=== PATIENT | female | born 1995 | race Caucasian/White ===

== ENCOUNTER 2020-12-15 05:48 | Inpatient (IN) ==
[2020-12-15] MEDS ORDERED: *HR* Nalbuphine 10 MG/ML AMPUL IV PRN (05:52)
[2020-12-15] MEDS ORDERED: Lidocaine 1% 20 ML MDV INFILT PRN (05:52)
[2020-12-15] MEDS ORDERED: Metoclopramide 10 MG/2 ML VIAL IVP PRN (05:52)
[2020-12-15] MEDS ORDERED: Famotidine 20 MG/2 ML VIAL IVP PRN (05:52)
[2020-12-15] MEDS ORDERED: Naloxone 0.4 MG/ML INJ IVP PRN (05:52)
[2020-12-15] MEDS ORDERED: miSOPROStoL 25 MCG TABLET PO PRN (05:54)
[2020-12-15] MEDS ORDERED: Ondansetron 4 MG/2 ML VIAL IVP PRN (06:00)
[2020-12-15] MEDS ORDERED: Ringers Solution, Lactated 1,000 ML IVC SCH (06:00)
[2020-12-15] MEDS ORDERED: EPHEDrine 50 MG/ML VIAL IVP PRN (06:09)
[2020-12-15] MEDS ORDERED: Epidural Premix (fent/bupiv) 110 ML EP SCH (06:15)
[2020-12-15 06:34] LABS: Basophils % 0.2 %; Eosinophils # 0.1 K/mcL (0.0-0.6); Hemoglobin 10.5 g/dL (11.5-15.4); Immature Granulocytes % 0.5 % (0-4); Lymphocytes # 1.7 K/mcL (0.6-4.6); Lymphocytes % 18.5 %; Mean Corpuscular HGB Conc 31.8 g/dL (31.6-35.5); Mean Corpuscular Hemoglobin 25.6 pg (28.0-33.3); Mean Corpuscular Volume 80.5 fL (83.0-100.0); Mean Platelet Volume 11.4 fL (9.4-12.4); Monocytes # 0.8 K/mcL (0.0-1.3); Monocytes % 8.4 %; Neutrophils # 6.6 K/mcL (1.6-8.9); Platelet Count 298 K/mcL (140-400); Red Cell Distribution Width 14.2 % (11.5-14.5); Segmented Neutrophils % 71.4 %; White Blood Count 9.3 K/mcL (4.3-11.1)
[2020-12-15 07:08] LABS: Influenza A PCR Negative (Negative); Influenza B PCR Negative (Negative); Resp. Syncytial Virus PCR Negative (Negative); SARS-CoV-2 by PCR (In House) Negative (Negative)
[2020-12-15 08:35] LABS: Amphetamine Screen,Urine Negative ng/mL (Cutoff=1000); Barbiturate Screen,Urine Negative ng/mL (Cutoff=200); Benzodiazepines Screen,Urine Negative ng/mL (Cutoff=300)
[2020-12-15 08:36] LABS: Cannabinoid Screen,Urine Negative ng/mL (Cutoff = 50); Cocaine Screen,Urine Negative ng/mL (Cutoff= 300); Opiate Screen,Urine Negative ng/mL (Cutoff=300); Phencyclidine Screen,Urine Negative ng/mL (Cutoff=25)
[2020-12-15] MEDS ORDERED: Oxytocin 20 units/ LR 1000 mL 20 UNIT/1,000 ML BAG IVC SCH (09:15)
[2020-12-15] MEDS ORDERED: Lidocaine/EPI 1:200k 2% PF 20 ML VIAL ONE (20:53)
[2020-12-15] MEDS ORDERED: Ondansetron 4 MG/2 ML VIAL ONE (21:11)
[2020-12-15] MEDS ORDERED: Ketorolac 30 MG/ML VIAL ONE (21:18)
[2020-12-15] MEDS ORDERED: *HR* FentaNYL (PF) 100 MCG/2 ML VIAL ONE (21:27)
[2020-12-15] MEDS ORDERED: *HR* Morphine Sulfate/PF 10 MG/10 ML AMPUL ONE (21:27)
[2020-12-16] MEDS ORDERED: Metoclopramide 10 MG/2 ML VIAL IVP PRN (00:01)
[2020-12-16] MEDS ORDERED: Ondansetron 4 MG/2 ML VIAL IVP PRN (00:01)
[2020-12-16] MEDS ORDERED: *HR* OxyCODONE Immed Rel 5 MG TABLET PO PRN (00:01)
[2020-12-16] MEDS ORDERED: Oxytocin 20 units/ LR 1000 mL 20 UNIT/1,000 ML BAG IVC SCH (00:01)
[2020-12-16] MEDS: Acetaminophen 325 MG TABLET PO SCH ×2 (01:45→12:24)
[2020-12-16] MEDS: Ibuprofen 600 MG TABLET PO SCH ×3 (01:45→15:47)
[2020-12-16] MEDS: Prenatal Vit/FA 1 EACH TABLET PO SCH (08:42)
[2020-12-16] MEDS: Simethicone 80 MG TAB.CHEW PO PRN ×2 (08:43→19:45)
[2020-12-16 14:44] LABS: Basophils % 0.2 %; Eosinophils % 0.2 %; Hematocrit 25.7 % (35.3-44.9); Immature Granulocytes % 0.5 % (0-4); Lymphocytes # 1.6 K/mcL (0.6-4.6); Mean Corpuscular HGB Conc 31.5 g/dL (31.6-35.5); Mean Corpuscular Hemoglobin 25.6 pg (28.0-33.3); Mean Corpuscular Volume 81.3 fL (83.0-100.0); Mean Platelet Volume 11.6 fL (9.4-12.4); Monocytes % 7.8 %; Neutrophils # 10.5 K/mcL (1.6-8.9); Platelet Count 228 K/mcL (140-400); Red Blood Count 3.16 M/mcL (3.82-4.97); Red Cell Distribution Width 14.2 % (11.5-14.5); Segmented Neutrophils % 79.3 %; White Blood Count 13.2 K/mcL (4.3-11.1)
[2020-12-16 14:45] LABS: Hemoglobin 8.1 g/dL (11.5-15.4)
[2020-12-16 20:59] VITALS: O2SAT 97
[2020-12-17] MEDS: Ibuprofen 600 MG TABLET PO SCH ×2 (00:17→08:17)
[2020-12-17] MEDS: Acetaminophen 325 MG TABLET PO SCH ×2 (00:17→08:17)
[2020-12-17 07:33] VITALS: BP 121/80; PULSE 83; TEMP 98.5
[2020-12-17] MEDS ORDERED: Lanolin 7 G OINT...G. TP PRN (08:05)
[2020-12-17] MEDS: Prenatal Vit/FA 1 EACH TABLET PO SCH (08:18)
== END 2020-12-17 14:30 | disposition home or self-care (01) | DRG 787 ==
LOC: 1NENULAB 05:48 → 1NENUOBS 12-16 00:42
PROVIDERS: ADMIT Obstetrics & Gynecology; ATTEND Obstetrics & Gynecology